=== PATIENT | male | born 1950 | race Caucasian/White ===

== ENCOUNTER 2019-11-29 11:52 | Emergency (ER) | payer BC, MEDICARE ==
[~2019-11-29] VITALS: Ht 172.7 cm; Wt 75.3 kg
--- NOTE | 2019-11-29 13:25 | NUR ---
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
[2019-11-29 13:51] VITALS: BP 164/86
--- NOTE | 2019-11-29 13:52 | NUR ---
BREAK RN: PT REPORTS HE HAS A NODULE IN HIS RIGHT NOSTRIL OF HIS NOSE THAT IS TENDER. VS STABLE. NO ACUTE DISTRESS NOTED. CALL LIGHT IN PLACE. WILL CONTINUE TO MONITOR WHILE PRIMARY RN IS ON BREAK.
== END 2019-11-29 15:21 | disposition home or self-care (01) ==
LOC: ED 15:12
DX: J33.9 Nasal polyp, unspecified (principal)
CPT/HCPCS: 99283